=== PATIENT | male | born 1975 | race Caucasian/White ===

== ENCOUNTER 2023-10-04 07:03 | Day surgery (SDC) | payer OTHER ==
[2023-09-29 08:55] LABS: HEMATOCRIT 44.3 % (39.0-48.0); HEMOGLOBIN 15.7 g/dL (13-16.00); MEAN CELL VOLUME 95.5 fL (80.0-100.00); MEAN CORPUSCULAR HGB CONC 35.6 g/dl (32.0-36.0); RED BLOOD COUNT 4.64 M/uL (4.00-6.00); RED CELL DISTRIBUTION WIDTH 12.4 % (11.5-14.5)
[2023-09-29 08:56] LABS: PH,URINE 5.5 (5.0-8.0); URINE APPEARANCE Clear; URINE BILIRRUBIN Negative (NEGATIVE); URINE BLOOD Negative; URINE COLOR Yellow; URINE GLUCOSE Negative (NEGATIVE); URINE LEUKOCYTE Negative; URINE NITRATE Negative; URINE PROTEIN Negative (NEGATIVE)
[2023-09-29 08:57] LABS: PLATELET COUNT 128 K/uL (150-450)
[2023-09-29 08:59] LABS: URINE EPITHELIAL CELLS 1.6 uL (0.0-38.8); URINE RBC 3.5 uL (0.0-20.8)
[2023-09-29 09:02] LABS: URINE BACTERIA 3.7 uL (0.0-1933); URINE WBC 1.6 uL (0.0-23.2)
[2023-09-29 09:10] LABS: INR 1.13; PARTIAL THROMBOPLASTIN TIME 30.8 SECONDS (22.0-34.0); PROTHROMBIN TIME 11.8 SECONDS (9.0-11.5)
[2023-09-29 09:25] LABS: ALBUMIN 3.5 gm/dL (3.4-5.0); BILIRUBIN TOTAL 0.76 mg/dL (0.3-1.2); CALCIUM 10.3 mg/dL (8.5-10.1); CREATININE SERUM 0.75 mg/dL (0.70-1.30); GFR 111.15; GLOBULINA 5.3 G/DL (2.4-3.5); POTASSIUM 4.32 mEq/L (3.5-5.1); TOTAL PROTEIN 8.8 gm/dL (6.4-8.2)
[~2023-10-04 07:03] MED LIST: ATIVAN2 M1 PO; DIOVAN40 MG; JANUVIA100 MG PO; RESTORIL30 M1 PO
[2023-10-04] MEDS ORDERED: CEFAZOLIN SODIUM 1,000 MG VIAL ONE (11:32)
[2023-10-04] MEDS ORDERED: CEFAZOLIN SODIUM 1,000 MG VIAL IV ONE (12:00)
== END 2023-10-04 19:55 | disposition home or self-care (01) ==
LOC: CIR.AMB 07:03
PROVIDERS: ATTEND Surgery
DX: K80.10 Calculus of gallbladder with chronic cholecystitis without obstruction (principal); I10 Essential (primary) hypertension